=== PATIENT | female | born 1975 | race Caucasian/White ===

== ENCOUNTER 2024-06-30 11:10 | Outpatient (CLI) | payer MEDICAID | END 2024-06-30 23:59 | disposition critical access hospital (66) | LOC: EMS 11:10 | DX: R10.31 Right lower quadrant pain (principal); R10.32 Left lower quadrant pain; R19.5 Other fecal abnormalities | CPT/HCPCS: A0425; A0427; A0999 ==

== ENCOUNTER 2024-06-30 11:40 | Emergency (ER) | payer MEDICAID ==
--- NOTE | 2024-06-30 11:47 | ED Physician Documentation ---
PD HPI ABD PAIN - Stated complaint Stated Complaint: ABD PX - History obtained from History obtained from: Patient - History of Present Illness Timing - onset: Today Timing - details: Abrupt onset, Still present Quality: Cramping, Aching, Pain Location: Periumbilical, Suprapubic, LLQ Radiation: Lower back Improved by: BM. No: Vomiting Associated symptoms: Nausea, Diarrhea, Loss of appetite. No: Fever, Melena (stool appeared dark, but more brown.) Similar symptoms before: Has not had sx before Recently seen: Clinic (she presented to [facility] yesterday for treatment of meth use. No history of opioids nor alcohol abuse. Onset of abd cramping and diarrhea today.) Review of Systems Constitutional: denies: Fever, Chills Nose: denies: Rhinorrhea / runny nose, Congestion Throat: denies: Sore throat Respiratory: denies: Cough GI: reports: Abdominal Pain, Nausea, Diarrhea. denies: Abdominal Swelling PD PAST MEDICAL HISTORY - Past Medical History Cardiovascular: None Respiratory: None GI: None - Present Medications Home Medications: Ambulatory Orders Medication Instructions Recorded Confirmed Dicyclomine [Bentyl] 10 mg PO QID PRN #20 cap 06/30/24 Diphenoxylate/Atropine [Lomotil] 1 each PO QID PRN #12 tablet 06/30/24 Famotidine [Pepcid] 20 mg PO DAILY #20 tablet 06/30/24 Ondansetron Odt [Zofran] 4 mg TL Q6H PRN #10 tablet 06/30/24 - Allergies Allergies/Adverse Reactions: Allergies Allergy/AdvReac Type Severity Reaction Status Date / Time Penicillins Allergy Anaphylaxis Verified 06/30/24 11:51 PD ED PE NORMAL - Vitals Vital signs reviewed: Yes - General General: Alert and oriented X 3, Well developed/nourished - Cardiac Cardiac: RRR, No murmur - Respiratory Respiratory: No respiratory distress, Clear bilaterally - Abdomen Abdomen: Soft, Non distended, Other (tender mid to left abd, mostly lower aspect. No percussion nor rebound tenderness. ). No: Normal bowel sounds (decreased) Results - Vitals Vitals: Vital Signs - 24 hr 06/30/24 06/30/24 06/30/24 11:52 12:00 14:00 Temperature 36.7 C Heart Rate 72 70 69 Respiratory 12 18 13 Rate Blood Pressure 108/64 108/61 114/74 O2 Saturation 98 99 99 06/30/24 06/30/24 16:13 17:23 Temperature Heart Rate 67 63 Respiratory 16 20 Rate Blood Pressure 107/67 98/62 O2 Saturation 98 98 Oxygen O2 Source Room air - Labs Labs: Laboratory Tests 06/30/24 06/30/24 06/30/24 12:30 12:30 15:15 WBC 7.2 RBC 4.53 Hgb 13.4 Hct 40.6 MCV 89.6 MCH 29.6 MCHC 33.0 RDW 12.9 Plt Count 148 MPV 9.5 Neut # (Auto) 5.7 Lymph # (Auto) 0.8 L [place] # (Auto) 0.6 Eos # (Auto) 0.1 Baso # (Auto) 0.0 Absolute Nucleated RBC 0.00 Nucleated RBC % 0.0 Sodium 136 Potassium 4.0 Chloride 107 Carbon Dioxide 23 Anion Gap 6.0 BUN 12 Creatinine 0.6 Estimated GFR (MDRD) 105 Glucose 84 Calcium 8.6 Total Bilirubin 0.5 AST 12 ALT 10 Alkaline Phosphatase 76 Total Protein 6.0 L Albumin 3.6 Globulin 2.4 Albumin/Globulin Ratio 1.5 Lipase 18 Urine Color DARK YELLOW Urine Clarity CLEAR Urine pH 5.5 Ur Specific [place] 1.010 Urine Protein TRACE Urine Glucose (UA) NEGATIVE Urine Ketones TRACE Urine Occult Blood NEGATIVE Urine Nitrite NEGATIVE Urine Bilirubin NEGATIVE Urine Urobilinogen 0.2 (NORMAL) Ur Leukocyte Esterase NEGATIVE Ur Microscopic Review NOT INDICATED Urine Culture Comments NOT INDICATED - Rads (name of study) abd/pelvic CT Relevant Findings:: Prelim report reviewed (Notable colon wall inflammation diffusely consistent with colitis, consider infectious versus inflammatory. Appendix is normal. No other acute process. Incidental note of some pelvic venous congestion.), EMP independent interpretation of test PD Medical Decision Making - ED course Complexity details: reviewed results, re-evaluated patient (taking PO adequately. Still with some abd cramping, and can give redose of meds.), considered differential (lower abd cramping pain with soft diarrheal stool that was dark color. nausea. No URI symptoms. Is at detox facility treating for meth use disorder.Denies alcohol dependence. ), d/w patient Social Determinants of Health: Delay couple of hours in patient in ER improved to time of discharge awaiting from [facility] to review the chart notes and confrim patient can go back there for treatment. ED course: The patient was at the detox facility being treated for meth use disorder and developed onset of cramping mid to lower abdominal pain associated with soft stool/diarrhea and she states it was dark in color. No upper abdominal pain per se. No history of ulcers. Denies upper respiratory symptoms. Exam here was showing tenderness mostly to the mid and lower abdomen particularly on the left. Less tender on the right. Epigastric area did not have tenderness per se. She did have an IV and given IV fluids as well as medications ondansetron for nausea and ketorolac as well as hydromorphone for pain. This did provide moderate to reasonable improvement in her pain. No nausea now at this time. She was able to drink some fluids and had part of a sandwich without any problems or vomiting. She has not had further stool movements here and was given a Lomotil antidiarrheal medication. No bowel movements here so we did not visualize the stool per se. I deferred a rectal exam. No guaiac testing was done. However her vital signs are good and her blood count shows a quite normal hemoglobin and hematocrit. Normal white count as well. Liver enzymes and electrolytes are also normal range. The patient had a CT scan done after shared discussion with concern from a localized process such as appendix or diverticulitis etc. The CT scan showed of a fairly general diffuse inflammation of the large intestine consistent with colitis. This general degree of it would be most consistently seen with food related food poisoning sore viral causes such as "stomach flu". There was no localized lesions such as diverticulitis. The appendix appeared normal. There could potentially be a small amount of bleeding from irritation of the colon leading to some dark stool. However she seems quite stable with regard to blood count and vital signs. There is no localized process that needs attention per se. At this point she is still having abdominal cramping which can be improved with antispasmodic such as dicyclomine which I can prescribe for her. Also nausea medicine such as ondansetron. With the potential for some stomach irritation, I would also suggest some acid reducing medicine such as famotidine. Again she is able to eat half a sandwich and drink some fluids here without any vomiting. She should be able to maintain with oral medications. We can go with an antidiarrheal medicine as well. We are seeing if the detox center can take her back. I would add prescriptions for ondansetron, dicyclomine, famotidine and Lomotil. Departure - Departure Disposition: 01 Home, Self Care Clinical Impression: Abdominal pain, Diarrhea, Acute colitis Condition: Stable Record reviewed to determine appropriate education?: Yes Instructions: ED Gastroenteritis Vs Food Poison Prescriptions: Dicyclomine [Bentyl] 10 mg PO QID PRN #20 cap PRN Reason: Abdominal Pain Diphenoxylate/Atropine [Lomotil] 1 each PO QID PRN #12 tablet PRN Reason: Diarrhea Famotidine [Pepcid] 20 mg PO DAILY #20 tablet Ondansetron Odt [Zofran] 4 mg TL Q6H PRN #10 tablet PRN Reason: Nausea / Vomiting Comments: Your CT scan shows inflammation generally of the colon/large intestine. This generally results from viral "stomach flu" or inflammatory conditions. There is no localized process, for example your appendix is normal and no signs of diverticulitis or a localized infection. We would treat this symptomatically with antidiarrhea medicine and antinauseants and medication to help with cramps and pains. Commonly they will be inflammation in the stomach area as well leading to nausea and sometimes vomiting. It would be prudent to go with an acid reducing medicine for the stomach for a week or 2. I wrote prescriptions for these various medicines. The detox center [facility] is coming to pick you up. They will continue to do new therefore this and there will be the added medicines for your stomach now currently. Your basic blood tests are good without any signs of inflammation of the pancreas or liver. On scan no signs of gallbladder problems. I would anticipate your symptoms improving over the next day or 2. Forms: PCP List Discharge Date/Time: 06/30/24 17:23
[2024-06-30] MEDS: ONDANSETRON 4 MG/2 ML VIAL IVP STA (12:36)
[2024-06-30] MEDS: KETOROLAC 15 MG/ML VIAL IVP STA (12:36)
[2024-06-30] MEDS: HYDROmorphone 1 MG/ML CARPUJECT IVP STA ×2 (12:37→16:08)
[2024-06-30] MEDS: SODIUM CHLORIDE 0.9% 1,000 ML IV STA (12:37)
[2024-06-30] MEDS ORDERED: iohexoL-300 100 ML VIAL ONE (12:38)
[2024-06-30 12:39] LABS: BASOPHILS % (AUTO) 0.4 %; EOSINOPHILS # (AUTO) 0.1 10^3/uL (0.0-0.7); HCT - HEMATOCRIT 40.6 % (37.0-47.0); HGB - HEMOGLOBIN 13.4 g/dL (12.0-16.0); LYMPHOCYTES # (AUTO) 0.8 10^3/uL (1.5-3.5); LYMPHOCYTES % (AUTO) 11.7 %; MEAN CORPUSCULAR HEMOGLOBIN 29.6 pg (27.0-31.0); MEAN CORPUSCULAR VOLUME 89.6 fL (81.0-99.0); MEAN PLATELET VOLUME 9.5 fL (7.9-10.8); MONOCYTES # (AUTO) 0.6 10^3/uL (0.0-1.0); MONOCYTES % (AUTO) 7.6 %; NEUTROPHILS # (AUTO) 5.7 10^3/uL (1.5-6.6); PLT - PLATELET COUNT 148 10^3/uL (130-450); RED BLOOD COUNT 4.53 10^6/uL (4.20-5.40); RED CELL DISTRIBUTION WIDTH 12.9 % (12.0-15.0); WHITE BLOOD COUNT 7.2 x10^3/uL (4.8-10.8)
[2024-06-30 13:22] LABS: ALBUMIN 3.6 g/dL (3.2-5.5); ALBUMIN/GLOBULIN RATIO 1.5 (1.0-2.2); BILIRUBIN,TOTAL 0.5 mg/dL (0.2-1.0); CALCIUM 8.6 mg/dL (8.5-10.3); CREATININE 0.6 mg/dL (0.6-1.3)
[2024-06-30] MEDS: iohexoL-300 100 ML VIAL IVP ONE (14:11)
[2024-06-30] MEDS: FAMOTIDINE 20 MG/2 ML VIAL IVP STA (14:13)
--- NOTE | 2024-06-30 14:55 | CT Report ---
PROCEDURE: Abdomen/Pelvis W INDICATIONS: RLQ Abdominal pain, appendicitis suspected CONTRAST: Omni 300 100ml TECHNIQUE: After the administration of intravenous contrast, a CT scan of the abdomen and pelvis was performed. Images were recorded and evaluated at appropriate window settings. Reformats: coronal and sagittal. F or radiation dose reduction, the following was used: automated exposure control, adjustment of mA and /or kV according to patient size. COMPARISON: None. FINDINGS: Image quality: Diagnostic. Lower chest: Unremarkable. Liver: No solid mass. Gallbladder: No radiopaque stones or wall thickening. Biliary tree: No intrahepatic or extrahepatic dilation, accounting for age. Spleen: No splenomegaly. Pancreas: No pancreatic ductal dilation. Adrenals: No adrenal nodule. Kidneys and ureters: No hydronephrosis. No renal cystic lesion which requires follow up. No solid mas s. Stomach, bowel and peritoneum: There is impressive edematous change and thickening of most of the col on.. No pathologic free fluid. Lipomatous ileocecal valve. A probable normal appendix is noted, refer ence coronal images 48 through 52 of series 4. Lymph nodes: No central or retroperitoneal adenopathy. Vessels: No infrarenal aortic aneurysm. Patent portal vein. 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 PELVIS Reproductive organs: Mild to moderate pelvic ascites, greater than physiologic. Cystic left adnexa. Bladder: No abnormal wall thickening, accounting for underdistention. Pelvic lymph nodes: No pelvic adenopathy by size criteria. Bones: No aggressive osseous abnormality. Other: No significant ventral or inguinal hernia. IMPRESSION: 1. Findings are consistent with impressive diffuse colitis. Consider infectious versus inflammatory e tiologies. 2. Normal appendix. 3. Mild to moderate pelvic ascites, greater than physiologic. 4. Cystic left adnexa.. 5. 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 This can result in a clinical syndrome of chronic pelvic venous congestion in certain individuals. Reviewed by: Shai Mixon MD on 06/30/2024 2:53 PM PDT Approved by: Shai Mixon MD on 06/30/2024 2:53 PM PDT Station ID: [id number]
[2024-06-30 15:43] LABS: BILIRUBIN,URINE NEGATIVE (NEGATIVE); GLUCOSE, URINE (UA) NEGATIVE (NEGATIVE); KETONES,URINE (UA) TRACE mg/dL (NEGATIVE); LEUKOCYTE ESTERASE, URINE NEGATIVE (NEGATIVE); NITRITE,URINE NEGATIVE (NEGATIVE); OCCULT BLOOD,URINE NEGATIVE (NEGATIVE); PH,URINE 5.5 PH (5.0-7.5); PROTEIN,URINE TRACE mg/dL (NEGATIVE); UROBILINOGEN,URINE 0.2 (NORMAL) E.U./dL (NORMAL)
[2024-06-30 15:46] LABS: CLARITY,URINE CLEAR (CLEAR)
[2024-06-30] MEDS: DIPHENOX/ATROPINE 2.5/0.025 MG TABLET PO STA (16:08)
[2024-06-30 16:21] VITALS: O2SAT 98
[2024-06-30 17:32] VITALS: BP 98/62
== END 2024-06-30 17:23 | disposition home or self-care (01) ==
LOC: ED 11:40
DX: K52.9 Noninfective gastroenteritis and colitis, unspecified (principal)
CPT/HCPCS: 36415; 74177; 80053; 81003; 83690; 85025; 96361; 96374; 96375; 96376; 99284; A9270; J1170; Q9967; 81001; 87086